=== PATIENT | female | born 1975 ===

== ENCOUNTER 2019-06-28 19:07 | Emergency (ER) | payer BC ==
[2019-06-28 19:19] VITALS: BP 118/73
[2019-06-28] MEDS ORDERED: Azithromycin TAB* 250 MG PO ONE (19:49)
[2019-06-28] MEDS ORDERED: Albuterol HFA INHALER* 8 gm MDI INH ONE (19:50)
--- NOTE | 2019-06-28 19:53 | UC ---
Respiratory Complaint HPI - HPI Summary HPI Summary: 43-year-old female comes in with a chief complaint of chest congestion wheezing and shortness of breath. Patient has had upper respiratory tract infection symptoms for about 3 weeks. But week ago she did improve but then the symptoms came back with chest congestion wheezing and fatigue. No prior history of asthma. Denies any chest pain. No edema. Patient reports some arm pain without chest pain about 5 days ago. She reports sputum production. - History of Current Complaint Chief Complaint: UCGeneralIllness Stated Complaint: URI Time Seen by Provider: 06/28/19 19:38 Hx Last Menstrual Period: [id number] Pain Intensity: 6 - Allergies/Home Medications Allergies/Adverse Reactions: Allergies Allergy/AdvReac Type Severity Reaction Status Date / Time No Known Allergies Allergy Verified 06/28/19 19:19 PMH/Surg Hx/FS Hx/Imm Hx Previously Healthy: Yes - Surgical History Surgical History: None - Family History Known Family History: Positive: Non-Contributory - Social History Alcohol Use: None Substance Use Type: None Smoking Status (MU): Never Smoked Tobacco Review of Systems All Other Systems Reviewed And Are Negative: Yes Constitutional: Positive: Fatigue, Other - SEE HPI Skin: Positive: Negative Eyes: Positive: Negative ENT: Positive: Sore Throat Respiratory: Positive: Shortness Of Breath, Cough, Other - SEE HPI Cardiovascular: Negative: Chest Pain Gastrointestinal: Positive: Negative Motor: Positive: Negative Neurovascular: Positive: Negative Musculoskeletal: Positive: Negative. Negative: Calf Tenderness, Edema Neurological: Positive: Negative Psychological: Positive: Negative Is Patient Immunocompromised?: No Physical Exam Triage Information Reviewed: Yes Appearance: No Pain Distress, Well-Nourished, Ill-Appearing - MILD Vital Signs: Initial Vital Signs Temp 96.9 F 06/28/19 19:13 Pulse 89 06/28/19 19:13 Resp 18 06/28/19 19:13 BP 118/73 06/28/19 19:13 Pulse Ox 97 06/28/19 19:13 Vital Signs Reviewed: Yes Eye Exam: Normal Eyes: Positive: Conjunctiva Clear ENT: Positive: Pharyngeal erythema, TMs normal Neck: Positive: Supple, Nontender Respiratory: Positive: No respiratory distress, Wheezing, Other: - DRY COUGH Cardiovascular: Positive: RRR Musculoskeletal: Positive: Strength Intact, ROM Intact, No Edema - NO CALF TENDERNESS Neurological: Positive: Alert Psychological: Positive: Age Appropriate Behavior Skin Exam: Normal Respiratory Course/Dx - Course Course Of Treatment: Patient has sputum production, wheezing, a sore throat and feels fatigued which is consistent with bronchitis with bronchospasm. Patient denies any chest pain. She has no edema. We discussed the signs and symptoms of heart attack which at this time the patient does not have. We discussed whether or not the chest x-ray tonight and decided that if the patient did not improve she would need a chest x-ray. The plan is to treat with azithromycin and albuterol inhaler and if he should does not improve or if she worsens has chest pain fevers feels ill then she will get reevaluated in the emergency department. - Differential Dx/Diagnosis Provider Diagnosis: Bronchitis with bronchospasm Discharge ED - Sign-Out/Discharge Documenting (check all that apply): Patient Departure All imaging exams completed and their final reports reviewed: No Studies - Discharge Plan Condition: Stable Disposition: HOME Prescriptions: Azithromycin 250 mg PO DAILY #4 tablet Patient Education Materials: Acute Bronchitis (ED), Bronchospasm (ED) Referrals: [facility] [place] [facility]IAN REFERRAL [Outside] Additional Instructions: FOLLOW UP WITH YOUR DOCTOR IF NOT COMPLETELY IMPROVED. GO TO THE EMERGENCY DEPARTMENT IF YOUR CONDITION DOES NOT IMPROVE OR WORSENS; CHEST PAIN, SHORTNESS OF BREATH, FEVERS OR ANY QUESTIONS OR CONCERNS. - Billing Disposition and Condition Condition: STABLE Disposition: Home
== END 2019-06-28 20:00 | disposition home or self-care (01) ==
LOC: UCEAST 19:07
DX: J20.9 Acute bronchitis, unspecified (principal)
CPT/HCPCS: 99203; A9270-GY; G0463